=== PATIENT | male | born 1960 | race Caucasian/White ===

== ENCOUNTER → 2016-10-04 | Outpatient (CLI) | payer OTHER ==
[2016-10-04 14:55] LABS: Partial Thromboplastin Time 23.4 sec (22.0-30.0); Prothrombin Time 10.5 sec (9.0-12.0)
[2016-10-04 14:56] LABS: Bilirubin, Delta 0.3 mg/dL (0.0-0.2); Total Bilirubin 0.9 mg/dL (0.2-1.3); Total Protein 7.1 g/dL (6.3-8.2)
[2016-10-04 15:11] LABS: CH 30.9; CHCM 33.6; HCT 43.6 % (39.0-53.0); HDW 2.45; HGB 14.2 gm/dL (13.0-17.5); MCH 30.1 pg (25.0-35.0); MCHC 32.6 g/dL (31.0-37.0); MCV 92.4 fL (80.0-100.0); Mean Platelet Volume 6.7; RBC 4.72 m/uL (4.30-5.90); RDW 13.4 % (11.5-15.5); WBC 6.8 k/uL (3.8-10.6)
[2016-10-06 07:28] LABS: Hepatits C Virus RNA, Quant <12 IU/mL (<12); LOG HCV IU/mL <1.08 (<1.08)
== END | disposition home or self-care (01) ==
LOC: LABWHC1 14:23
PROVIDERS: ATTEND Physician Assistant
DX: K74.60 Unspecified cirrhosis of liver (principal)
CPT/HCPCS: 36415; 80076; 82105; 85027; 85610; 85730; 87522

== ENCOUNTER → 2016-12-10 | Outpatient (CLI) | payer OTHER ==
--- NOTE | 2016-12-10 10:39 | MR ---
EXAMINATION TYPE: MR lumbar spine wo con DATE OF EXAM: 12/10/2016 COMPARISON: Prior lumbar MRI 03/22/2012 HISTORY: Low back pain TECHNIQUE: Multiplanar, multisequence images of the lumbar spine were acquired. L1-L2: Broad-based posterior disc bulge causes minimal anterior mass effect on the thecal sac, no sig nificant central stenosis or foraminal encroachment. L2-L3: Broad-based posterior disc bulge causes minimal anterior mass effect on the thecal sac. No sig nificant foraminal encroachment or central stenosis. L3-L4: Posterior broad-based disc bulge causes mild anterior mass effect on the thecal sac. No signif icant foraminal encroachment or central stenosis. Mild facet arthropathy with hypertrophy of ligament um flavum. L4-L5: Broad-based posterior disc bulge causes mild anterior mass effect on the thecal sac. No signif icant central stenosis. No significant foraminal encroachment. L5-S1: Broad-based posterior disc bulge causes contact the anterior thecal sac possibly proximal S1 n erve roots, lateral extension of endplate disc complex encroaches on the lateral recesses. No signifi cant. There is some facet arthropathy change. Lumbar segments are intact. No paraspinal masses are identified. Conus medullaris has a normal appe arance. There is some motion artifact. Loss of disc height and signal present at the intervertebral l evels as on previous exam, there is multilevel spondylosis as well as endplate discogenic marrow sign al change similar to prior. Alignment is stable, minimal retrolisthesis grade 1 L3-4, L4-5, L2-3. The conus is at T12 and shows an unremarkable appearance. IMPRESSION: Degenerative disc disease, facet arthropathy. No significant central stenosis. Mild foraminal encroac hment L5-S1. Findings are similar to prior exam.
== END | disposition home or self-care (01) ==
LOC: RADMRIMAIN 09:31
PROVIDERS: ATTEND Nurse Practitioner Acute Care
DX: M51.27 Other intervertebral disc displacement, lumbosacral region (principal); M51.36 Other intervertebral disc degeneration, lumbar region; M46.86 Other specified inflammatory spondylopathies, lumbar region
CPT/HCPCS: 72148

== ENCOUNTER → 2017-04-04 | Outpatient (CLI) | payer OTHER ==
[2017-04-04 11:03] LABS: CH 29.6; CHCM 33.1; HCT 43.5 % (39.0-53.0); HDW 2.28; HGB 14.3 gm/dL (13.0-17.5); MCH 29.6 pg (25.0-35.0); MCHC 32.9 g/dL (31.0-37.0); MCV 89.9 fL (80.0-100.0); Mean Platelet Volume 7.5; RBC 4.84 m/uL (4.30-5.90); WBC 6.2 k/uL (3.8-10.6)
[2017-04-04 11:11] LABS: INR 1.1 (<1.2); Partial Thromboplastin Time 23.4 sec (22.0-30.0); Prothrombin Time 11.1 sec (9.0-12.0)
[2017-04-04 11:45] LABS: Bilirubin, Delta 0.3 mg/dL (0.0-0.2); Total Bilirubin 1.3 mg/dL (0.2-1.3); Total Protein 7.5 g/dL (6.3-8.2)
--- NOTE | 2017-04-04 12:08 | US ---
EXAMINATION TYPE: US liver DATE OF EXAM: 04/04/2017 COMPARISON: 08/07/2014 CLINICAL HISTORY: 57-year-old male K74.60 CIRRHOSIS OF LIVER. TECHNIQUE: Multiple sonographic images of the right upper quadrant are obtained. FINDINGS: Liver Length: 10.7 cm Gallbladder Wall: 0.1 cm CBD: 0.3 cm Right Kidney: 10.5 x 5.3 x 4.9 cm Pancreas: Pancreatic head and tail obscured by bowel gas, portions visualized wnl Liver: Slight coarsened echotexture may reflect the patient's underlying hepatocellular disease. No f ocal lesion. Hepatopedal flow is noted within the main portal vein. Gallbladder: wnl Evidence for sonographic Longo's sign: no CBD: wnl Right Kidney: No hydronephrosis. IMPRESSION: No sonographic evidence for hepatoma.
[2017-04-05 13:53] LABS: Hepatits C Virus RNA, Quant <12 IU/mL (<12); LOG HCV IU/mL <1.08 (<1.08)
== END | disposition home or self-care (01) ==
LOC: RADUSWWP 09:43
PROVIDERS: ATTEND Internal Medicine Gastroenterology
DX: K74.60 Unspecified cirrhosis of liver (principal)
CPT/HCPCS: 36415; 76705; 80076; 82105; 85027; 85610; 85730; 87522

== ENCOUNTER → 2017-10-11 | Outpatient (CLI) | payer OTHER ==
[2017-10-11 17:06] LABS: HGB 13.2 gm/dL (13.0-17.5); MCH 30.6 pg (25.0-35.0); MCHC 33.9 g/dL (31.0-37.0); MCV 90.1 fL (80.0-100.0); Mean Platelet Volume 6.9; Platelet Count 311 k/uL (150-450); RBC 4.33 m/uL (4.30-5.90); RDW 13.2 % (11.5-15.5); WBC 11.3 k/uL (3.8-10.6)
[2017-10-11 17:08] LABS: Partial Thromboplastin Time 22.3 sec (22.0-30.0); Prothrombin Time 10.1 sec (9.0-12.0)
[2017-10-11 17:12] LABS: Albumin 4.3 g/dL (3.5-5.0); Bilirubin, Delta 0.3 mg/dL (0.0-0.2); Bilirubin,Unconjugated 0.5 mg/dL (0.0-1.1); Total Bilirubin 0.8 mg/dL (0.2-1.3); Total Protein 6.8 g/dL (6.3-8.2)
[2017-10-12 13:03] LABS: Hepatits C Virus RNA Not detected (Not detected); Hepatits C Virus RNA, Quant <12 IU/mL (<12); LOG HCV IU/mL <1.08 (<1.08)
== END | disposition home or self-care (01) ==
LOC: LABWHC1 16:01
PROVIDERS: ATTEND Physician Assistant
DX: K74.60 Unspecified cirrhosis of liver (principal)
CPT/HCPCS: 36415; 80076; 82105; 85027; 85610; 85730; 87522

== ENCOUNTER → 2018-04-12 | Outpatient (CLI) | payer OTHER ==
[2018-04-12 12:56] LABS: HCT 44.3 % (39.0-53.0); HGB 14.5 gm/dL (13.0-17.5); INR 1.1 (<1.2); MCHC 32.7 g/dL (31.0-37.0); MCV 91.8 fL (80.0-100.0); Mean Platelet Volume 6.3; Partial Thromboplastin Time 23.7 sec (22.0-30.0); Platelet Count 267 k/uL (150-450); Prothrombin Time 10.4 sec (9.0-12.0); RBC 4.83 m/uL (4.30-5.90); RDW 13.3 % (11.5-15.5); WBC 9.4 k/uL (3.8-10.6)
[2018-04-12 19:55] LABS: Albumin 4.7 g/dL (3.80-4.90); Albumin/Globulin Ratio 1.96 (1.20-2.10); Bilirubin, Conjugated 0.3 mg/dL (0.20-0.40); Bilirubin,Unconjugated 0.8 mg/dL; Globulin 2.4 g/dL (2.1-3.7); Total Bilirubin 1.1 mg/dL (0.2-1.2); Total Protein 7.1 g/dL (6.2-8.2)
[2018-04-13 15:04] LABS: Hepatits C Virus RNA Not detected (Not detected); Hepatits C Virus RNA, Quant <12 IU/mL (<12); LOG HCV IU/mL <1.08 (<1.08)
== END | disposition home or self-care (01) ==
LOC: LABWHC1 12:11
PROVIDERS: ATTEND Physician Assistant
DX: K74.60 Unspecified cirrhosis of liver (principal)
CPT/HCPCS: 36415; 80076; 82105; 85027; 85610; 85730; 87522

== ENCOUNTER → 2018-06-01 | Outpatient (CLI) | payer OTHER ==
--- NOTE | 2018-06-01 12:11 | US ---
EXAMINATION TYPE: US abdomen limited DATE OF EXAM: 06/01/2018 COMPARISON: CLINICAL HISTORY: K74.60 Cirrhosis of the liver. npo EXAM MEASUREMENTS: Liver Length: 17.5 cm. This is enlarged. Normal less than 15.5 cm. Gallbladder Wall: 0.1 cm CBD: 0.4 cm CHD: 0.2 cm Right Kidney: 11.0 x 4.6 x 5.1 cm Pancreas: Appears echogenic in appearance. Tail obscured by overlying bowel gas Liver: Appears echogenic and course. Hepatic artery and MPV showed hepatopetal vascular flow. Gallbladder: wnl Evidence for sonographic Longo's sign: neg CBD: wnl CHD: wnl Right Kidney: wnl IMPRESSION: 1. Hepatomegaly.
== END | disposition home or self-care (01) ==
LOC: RADUSWWP 10:42
PROVIDERS: ATTEND Physician Assistant
DX: R16.0 Hepatomegaly, not elsewhere classified (principal); K74.60 Unspecified cirrhosis of liver
CPT/HCPCS: 76705

== ENCOUNTER → 2018-07-27 | Outpatient (CLI) | payer OTHER ==
--- NOTE | 2018-07-27 12:48 | CT ---
EXAMINATION TYPE: CT chest wo con DATE OF EXAM: 07/27/2018 COMPARISON: NONE HISTORY: COPD. Shortness of breath. CT DLP: 175.3 mGycm. Automated Exposure Control for Dose Reduction was Utilized. TECHNIQUE: CT scan of the thorax is performed without IV contrast. FINDINGS: LUNGS: Linear bandlike pleural parenchymal scarring is seen within the right lung apex that extends b oth vertically and horizontally on sagittal imaging seen on sagittal image 29 through 31 and axial im age 10. Bandlike scarring is also seen within the posterior right upper lobe on series 7 image 35. Th is is also present on image 19. Underlying moderate emphysematous changes seen throughout the lungs. The lungs are grossly clear, the re is no concerning parenchymal mass or nodule identified. There is no pleural effusion or pneumoth orax seen. Extensive three-vessel coronary calcifications are present. The tracheobronchial tree is p atent. MEDIASTINUM: Lack of IV contrast is noted to limit evaluation for mediastinal and especially hilar ad enopathy. There are no definitive greater than 1 cm hilar or mediastinal lymph nodes. Ascending thor acic aorta is upper limits of normal in size. No cardiomegaly or pericardial effusion is seen. OTHER: 2 mm calcifications are seen with the right upper pole and right midpole (3 in number) 2 mm le ft-sided obstructing calculus is also seen. Extensive atherosclerosis of the upper abdominal aorta is present. Gastric fundal diverticulum is incidentally noted. Diffuse thickening of the stomach may re late to incomplete distention and could be further evaluated with contrast. Mild multilevel degenerat bianca changes of the thoracic spine are noted. IMPRESSION: 1. Bandlike pleural parenchymal scarring and underlying moderate centrilobular emphysema. No suspicio us pulmonary mass at this time. Annual low dose screening CT chest would be recommended if this patie nt has a history of tobacco abuse in the setting of COPD. 2. Bilateral nonobstructing renal calculi. 3. Severe three-vessel coronary artery calcifications, marker of coronary artery disease.
== END | disposition home or self-care (01) ==
LOC: RADCTMAIN 12:01
PROVIDERS: ATTEND Family Medicine
DX: J43.2 Centrilobular emphysema (principal); F17.218 Nicotine dependence, cigarettes, with other nicotine-induced disorders; I25.10 Atherosclerotic heart disease of native coronary artery without angina pectoris
CPT/HCPCS: 71250

== ENCOUNTER → 2019-01-15 | Outpatient (CLI) | payer OTHER ==
[2019-01-15 12:58] LABS: Partial Thromboplastin Time 25.9 sec (22.0-30.0); Prothrombin Time 10.8 sec (9.0-12.0)
[2019-01-15 13:32] LABS: HCT 43.3 % (39.0-53.0); HGB 14.4 gm/dL (13.0-17.5); MCH 30.3 pg (25.0-35.0); MCHC 33.1 g/dL (31.0-37.0); MCV 91.4 fL (80.0-100.0); Platelet Count 271 k/uL (150-450); RBC 4.74 m/uL (4.30-5.90); RDW 14.7 % (11.5-15.5); WBC 6.1 k/uL (3.8-10.6)
[2019-01-15 21:12] LABS: Albumin 4.7 g/dL (3.80-4.90); Albumin/Globulin Ratio 2.24 (1.60-3.17); Bilirubin, Conjugated 0.3 mg/dL (0.20-0.40); Bilirubin,Unconjugated 0.5 mg/dL; Globulin 2.1 g/dL (1.6-3.3); Total Bilirubin 0.8 mg/dL (0.2-1.2); Total Protein 6.8 g/dL (6.2-8.2)
[2019-01-17 14:09] LABS: LOG HCV IU/mL <1.08 (<1.08)
== END | disposition home or self-care (01) ==
LOC: LABWHC1 12:22
PROVIDERS: ATTEND Physician Assistant
DX: K74.60 Unspecified cirrhosis of liver (principal)
CPT/HCPCS: 36415; 80076; 82105; 85027; 85610; 85730; 87522

== ENCOUNTER → 2019-02-15 | Outpatient (CLI) | payer OTHER ==
--- NOTE | 2019-02-15 13:52 | US ---
EXAMINATION TYPE: US kidneys/renal and bladder DATE OF EXAM: 02/15/2019 COMPARISON: Renal ultrasound dated 08/30/2010 CLINICAL HISTORY: R93.41 Abnormal radiologic findings. cyst seen on MRI EXAM MEASUREMENTS: Right Kidney: 10.8 x 4.6 x 5.3 cm Left Kidney: 11.5 x 4.9 x 5.8 cm Right Kidney: No hydronephrosis or masses seen Left Kidney: 1.5cm medial cyst seen, noted on previous US from 2010. On the prior exam this measured 1.2 cm. Bladder: wnl Bilateral Jets seen: yes There is no evidence for hydronephrosis at this point in time. No nephrolithiasis is seen. No suspi cious solid masses are identified. The urinary bladder is anechoic. Bilateral ureteral jets are see n. IMPRESSION: Very minimal increase in size of the left renal cyst in comparison to the exam of 2011. N o suspicious solid renal masses.
== END | disposition home or self-care (01) ==
LOC: RADUSWWP 12:18
PROVIDERS: ATTEND Family Medicine
DX: R93.41 Abnormal radiologic findings on diagnostic imaging of renal pelvis, ureter, or bladder (principal)
CPT/HCPCS: 76770

== ENCOUNTER → 2019-02-19 | Day surgery (SDC) | payer OTHER ==
[2019-02-15 08:42] VITALS: BMI 20.1
[~2019-02-19] MED LIST: LACTATED RINGERS 1,000 ML IV SCH; LIDOCAINE 1% 20 ML VIAL (10MG/ML) FOR IV START INTRADERMA ONE; LIDOCAINE 1% INJ 10MG/ML (20 ML MDV) ONE; PROPOFOL 10 MG/ML 20 ML VIAL IV ONE
[2019-02-19 12:35] VITALS: RESP 16; TEMP 98.1
--- NOTE | 2019-02-19 14:02 | P.PCN ---
Date of Procedure: 02/19/19 Description of Procedure: BRIEF HISTORY: Patient is a 59-year-old, pleasant, male patient who presents for endoscopic evaluation of symptoms of esophageal dysphagia. He reports prior EGD with dilation in 2017. Currently on Prilosec daily. He denies any breakthrough heartburn or reflux. PROCEDURE PERFORMED: Esophagogastroduodenoscopy. PREOPERATIVE DIAGNOSIS: Esophageal dysphagia. ESTIMATED BLOOD LOSS: Minimal. IV sedation per anesthesia. PROCEDURE: After informed consent was obtained, the patient was brought into the endoscopy unit. IV sedation was administered by Anesthesia under continuous monitoring. Initially the Olympus GIF-190 video endoscope was inserted into the mouth. Esophagus intubated without any difficulty. It was gradually advanced into the stomach and duodenum and carefully examined. The bulb and the second part of the duodenum appeared normal, with biopsies taken. The scope at this time was withdrawn to the stomach, adequately insufflated with air, and upon careful examination, mucosa of the antrum, body, cardia and the fundus appeared normal, with biopsies of the antrum and body to. The scope was then withdrawn into the esophagus. The GE junction was located at 39 cm from the incisors. The esophagus appeared grossly normal except for a widely patent nonobstructing distal stricture just above the GE junction which was serially dilated with a [id number] balloon dilator to 1516.518 mm serially.. The patient tolerated the procedure well. IMPRESSION: 1. Distal esophageal stricture, dilated with [id number] balloon dilator. 2. Biopsies of the antrum body and duodenum. RECOMMENDATIONS: The findings of this examination were discussed with the patient and his friend. Okay to resume diet, recommend full liquids today and advance tomorrow as tolerated. Continue current medical management. Follow-up in gastroenterology clinic as previously scheduled. Await pathology from biopsies.
[2019-02-19 14:20] VITALS: BP 150/79; PULSE 57
== END | disposition home or self-care (01) ==
LOC: ORWHC2ENDO 12:20
PROVIDERS: ATTEND Internal Medicine
DX: K22.2 Esophageal obstruction (principal); K29.50 Unspecified chronic gastritis without bleeding; R13.14 Dysphagia, pharyngoesophageal phase; I10 Essential (primary) hypertension; E78.5 Hyperlipidemia, unspecified; N40.0 Benign prostatic hyperplasia without lower urinary tract symptoms; F32.9 Major depressive disorder, single episode, unspecified; K21.9 Gastro-esophageal reflux disease without esophagitis; Z79.891 Long term (current) use of opiate analgesic; Z79.899 Other long term (current) drug therapy; F17.210 Nicotine dependence, cigarettes, uncomplicated
CPT/HCPCS: 88305; 43239; 43249; J2001; J2704; C1726

== ENCOUNTER → 2019-09-06 | Outpatient (CLI) | payer OTHER ==
[2019-09-06 12:08] LABS: HCT 39.8 % (39.0-53.0); HGB 13.1 gm/dL (13.0-17.5); MCH 29.6 pg (25.0-35.0); MCHC 32.9 g/dL (31.0-37.0); Platelet Count 266 k/uL (150-450); RBC 4.42 m/uL (4.30-5.90); RDW 13.1 % (11.5-15.5); WBC 9.4 k/uL (3.8-10.6)
[2019-09-06 12:18] LABS: Prothrombin Time 10.2 sec (9.0-12.0)
[2019-09-06 18:06] LABS: Albumin 4.4 g/dL (3.80-4.90); Albumin/Globulin Ratio 1.83 (1.60-3.17); Bilirubin, Conjugated 0.2 mg/dL (0.20-0.40); Bilirubin,Unconjugated 0.4 mg/dL; Globulin 2.4 g/dL (1.6-3.3); Total Bilirubin 0.6 mg/dL (0.2-1.2); Total Protein 6.8 g/dL (6.2-8.2)
== END | disposition home or self-care (01) ==
LOC: LABWHC1 11:47
PROVIDERS: ATTEND Physician Assistant
DX: K74.60 Unspecified cirrhosis of liver (principal)
CPT/HCPCS: 36415; 80076; 82105; 85027; 85610

== ENCOUNTER → 2019-11-22 | Outpatient (CLI) | payer OTHER ==
[2019-11-22 12:26] LABS: HCT 38.8 % (39.0-53.0); HGB 12.5 gm/dL (13.0-17.5); MCH 29.5 pg (25.0-35.0); MCHC 32.3 g/dL (31.0-37.0); MCV 91.5 fL (80.0-100.0); Mean Platelet Volume 7.5; Platelet Count 244 k/uL (150-450); RBC 4.24 m/uL (4.30-5.90); RDW 13.2 % (11.5-15.5); WBC 8.8 k/uL (3.8-10.6)
[2019-11-22 16:07] LABS: Albumin 4.3 g/dL (3.80-4.90); Albumin/Globulin Ratio 1.72 (1.60-3.17); Bilirubin, Conjugated 0.2 mg/dL (0.20-0.40); Bilirubin,Unconjugated 0.3 mg/dL; Globulin 2.5 g/dL (1.6-3.3); Total Bilirubin 0.5 mg/dL (0.3-1.2); Total Protein 6.8 g/dL (6.2-8.2)
[2019-11-22 19:17] LABS: INR 0.99 (0.90-1.11); Prothrombin Time 10.6 sec (9.9-11.9)
== END | disposition home or self-care (01) ==
LOC: LABWHC1 10:09
PROVIDERS: ATTEND Internal Medicine
DX: K74.60 Unspecified cirrhosis of liver (principal)
CPT/HCPCS: 36415; 80076; 82105; 85027; 85610

== ENCOUNTER 2019-12-03 08:29 | Day surgery (SDC) | payer OTHER ==
[~2019-12-03 08:29] MED LIST changes: -LIDOCAINE 1% 20 ML VIAL (10MG/ML) FOR IV START INTRADERMA ONE; -LIDOCAINE 1% INJ 10MG/ML (20 ML MDV) ONE; -PROPOFOL 10 MG/ML 20 ML VIAL IV ONE
[2019-12-03 08:56] VITALS: RESP 16; TEMP 98.5
[2019-12-03] MEDS ORDERED: LIDOCAINE 1% (10MG/ML) FOR IV START INTRADERMA ONE (09:02)
[2019-12-03] MEDS ORDERED: LIDOCAINE 1% INJ 10MG/ML (20 ML MDV) ONE (09:47)
[2019-12-03] MEDS ORDERED: PROPOFOL 10 MG/ML 20 ML VIAL IV ONE (09:47)
--- NOTE | 2019-12-03 10:22 | P.PCN ---
Date of Procedure: 12/03/19 Description of Procedure: BRIEF HISTORY: Patient is a 59-year-old male presenting for outpatient colonoscopy for screening for malignant neoplasm colon. Last colonoscopy in 2013. No change in bowel habits, he does report abdominal pain. He does of a known history of cirrhosis of liver. PROCEDURE PERFORMED: Colonoscopy with polypectomy. PREOPERATIVE DIAGNOSIS: Screening for malignant neoplasm colon, last colonoscopy in 2013. ESTIMATED BLOOD LOSS: Minimal. IV sedation per Anesthesia. PROCEDURE: After informed consent was obtained, the patient, was brought into the endoscopy unit. IV sedation was administered by Anesthesia under continuous monitoring. Digital rectal examination was normal. Initially the Olympus CF-190 flexible video colonoscope was then inserted in the rectum, gradually advanced into the cecum without any difficulty. Careful examination was performed as the scope was gradually being withdrawn. Ileocecal valve and the appendiceal orifice were visualized and appeared normal. Prep was excellent. Mucosa of the cecum, ascending colon, transverse colon, descending colon, sigmoid colon, and rectum appeared normal. Multiple small and large mouth diverticula noted throughout the colon. Diminutive 2 mm ascending colon polyp removed with cold forcep polypectomy. Diminutive 3 mm transverse colon polyp removed forcep polypectomy. Retroflexion was performed in the rectum and no lesions were seen, low grade internal hemorrhoids. The patient tolerated the procedure well. IMPRESSION: 2 diminutive polyps removed from the ascending colon and transverse colon with cold forcep polypectomy. Moderate pandiverticulosis. RECOMMENDATIONS: Findings of this examination were discussed with the patient. Okay to resume diet. Okay to resume medication. Await pathology from polypectomies. Would recommend repeat colonoscopy in 5 years pending pathology polypectomy..
[2019-12-03 10:36] VITALS: BP 135/71; PULSE 56
== END 2019-12-03 11:08 | disposition home or self-care (01) ==
LOC: ORWHC2ENDO 08:29
PROVIDERS: ATTEND Internal Medicine
DX: D12.2 Benign neoplasm of ascending colon (principal); D12.3 Benign neoplasm of transverse colon; K57.30 Diverticulosis of large intestine without perforation or abscess without bleeding; K74.60 Unspecified cirrhosis of liver; J44.9 Chronic obstructive pulmonary disease, unspecified; M19.90 Unspecified osteoarthritis, unspecified site; F41.9 Anxiety disorder, unspecified; Z86.19 Personal history of other infectious and parasitic diseases; Z79.899 Other long term (current) drug therapy
CPT/HCPCS: 88305; 45380; J2001; J2704

== ENCOUNTER → 2021-02-12 | Outpatient (CLI) | payer OTHER ==
--- NOTE | 2021-02-12 15:23 | CT ---
EXAMINATION TYPE: CT abdomen pelvis w con DATE OF EXAM: 02/12/2021 COMPARISON: MRI liver August 16, 2010. Ultrasound abdomen limited June 01, 2018 HISTORY: RLQ pain, nausea, vomiting CT DLP: 810 mGycm, Automated Exposure Control for Dose Reduction was Utilized. CONTRAST: CT scan of the abdomen and pelvis is performed with oral and with IV Contrast, patient injected with 100 mL of Isovue 300. FINDINGS: LUNG BASES: Motion artifact degradation. Suspect mild to moderate interstitial edema and/or scarring LIVER/GB: Heterogeneous liver with new large inferior slightly more hypodense right-sided mass has ce ntral more prominent irregular hypodensity measuring approximately 7.8 cm AP diameter by 9.0 cm trans versely by 14 cm caudal diameter coronal image 33 and axial image 38. Significant local mass effect i s present. No new biliary dilatation. Gallbladder within normal limits. PANCREAS: No significant abnormality is seen. SPLEEN: No significant abnormality is seen. ADRENALS: No significant abnormality is seen. KIDNEYS: There is 3 mm nonobstructing calculus left kidney upper to midpole level axial image 23. The re are 2-3 simple-appearing thin-walled cysts scattered throughout the left kidney. There is 2 mm non obstructing calculus right kidney mid to lower pole level axial image 21. BOWEL: Oral contrast does not reach level of terminal ileum. No suspicious small or large bowel dilat ation. Scattered colonic diverticula. No CT evidence for acute diverticulitis. PROSTATE/SEMINAL VESICLES: No gross abnormality seen. LYMPH NODES: No greater than 1cm abdominal or pelvic lymph nodes are appreciated. OSSEOUS STRUCTURES: Moderate axial joint space loss in both hips. Moderate disc space narrowing and v acuum disc phenomenon L5-S1 level. Mild to moderate disc space narrowing L1-L2 and L2-L3 levels. Post erior disc herniations efface the anterior thecal sac L3-L4 and L4-L5 levels. OTHER: No significant additional abnormality is seen. IMPRESSION: New large inferior right hepatic lobe mass with local mass effect in patient with known c irrhosis, hepatocellular carcinoma needs to be excluded, correlate clinically and with alpha-fetoprot ein levels. Presence of central irregular hypodensity suggests central scar and differential would in clude hepatic adenoma and FNH. Even if benign surgical excision would be warranted due to size and pr esumed rapid growth and patient reported symptoms of pain.
== END | disposition home or self-care (01) ==
LOC: RADCTMAIN 12:27
PROVIDERS: ATTEND Physician Assistant
DX: R10.31 Right lower quadrant pain (principal); K74.60 Unspecified cirrhosis of liver
CPT/HCPCS: 74177; Q9967

== ENCOUNTER → 2021-04-07 | Outpatient (CLI) | payer OTHER | END | disposition home or self-care (01) | LOC: LABWHC1 12:40 | PROVIDERS: ATTEND Family Medicine | DX: Z20.822 Contact with and (suspected) exposure to COVID-19 (principal) | CPT/HCPCS: U0003; C9803 ==

== ENCOUNTER → 2021-04-15 | Outpatient (CLI) | payer OTHER ==
--- NOTE | 2021-04-15 15:43 | XR ---
EXAMINATION TYPE: XR chest 2V DATE OF EXAM: 04/15/2021 COMPARISON: NONE TECHNIQUE: PA and lateral views submitted. HISTORY: Cough FINDINGS: The lungs are clear and there is no pneumothorax, pleural effusion, or focal pneumonia. Hyperinflat ion. Atherosclerotic change of the aorta. Degenerative change of the spine. Diffuse osteopenia with a rthropathy of the right shoulder. IMPRESSION: 1. No acute process. Correlate for COPD.
== END | disposition home or self-care (01) ==
LOC: RADXRYALE 13:18
PROVIDERS: ATTEND Physician Assistant
DX: R05.9 Cough, unspecified (principal)
CPT/HCPCS: 71046